=== PATIENT | female | born 1985 | race Caucasian/White ===

== ENCOUNTER 2018-11-29 22:41 | Emergency (ER) | payer MEDICAID, OTHER ==
[2018-11-29] MEDS ORDERED: Iopamidol 755 Mg/ML 100 ML Bottle IV ONE (23:48)
--- NOTE | 2018-11-30 00:03 | EDM.PDOC ---
ED HPI GENERAL MEDICAL PROBLEM - General Stated Complaint: SOB CHEST PAIN,BRUISE LT HIP Time Seen by Provider: 11/29/18 23:00 Source of Information: Reports: Patient History Limitations: Reports: No Limitations - History of Present Illness INITIAL COMMENTS - FREE TEXT/NARRATIVE: patient presents with concern for feeling short of breath with any exertion for the past day. Also has noticed some pain in her left collarbone area and left shoulder blade over the same timeframe. Today noticed a bruise on her left side , very dark, painful, and quite certain she did not get hit there. Has never had anything like this happen before. Nothing seems to make symptoms better or worse. Has noticed fatiguing more easily. Maybe very slight dry cough. No urinary or GI symptoms. immunosupressed been on/off prednisone for some kind of skin condition they have not been able to treat any other way. History of RA for which she is on methotraxate and xeljanz. Has been on 2 drug combination about 2 weeks, prior to that was just on xeljanz. Sexually active with only, LMP 2 days ago. has had vasectomy. Left Chest Pain Score (Numeric/FACES): 4 - Related Data Allergies Allergy/AdvReac Type Severity Reaction Status Date / Time No Known Allergies Allergy Verified 11/30/18 00:24 Home Meds: Home Meds Doxycycline [Vibramycin] 100 mg PO BID #28 cap 11/30/18 [Rx] Methotrexate Sodium [Methotrexate] 12.5 mg PO Q7D 11/30/18 [History] Tofacitinib Citrate [Xeljanz Xr] 1 tab PO DAILY 11/30/18 [History] metroNIDAZOLE [Metronidazole] 500 mg PO BID 14 Days #28 tablet 11/30/18 [Rx] predniSONE [Prednisone] 0 mg PO ASDIRECTED 11/30/18 [History] Past Medical History Cardiovascular History: Reports: None Respiratory History: Reports: None Gastrointestinal History: Reports: Hemorrhoids : 2 Para: 2 Immunologic History: Reports: Immunosuppression, Other (See Below) Other Immunologic History: RA, on methotrexate and xeljanz Social & Family History - Tobacco Use Smoking Status *Q: Never Smoker - Recreational Drug Use Recreational Drug Use: No - Sexual History Sexual History: Reports: Single Partner (s/p vasectomy) - Living Situation & Occupation Living situation: Reports: Social History Comment: two kids. 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 Denies: Fever, Decreased Appetite, Weight Loss HEENT: Denies: Rhinitis, Sinus Problem, Vertigo Respiratory: Reports: Shortness of Breath. Denies: Pleuritic Chest Pain, Cough Cardiovascular: Reports: Dyspnea on Exertion, Lightheadedness, Palpitations. Denies: Chest Pain Endocrine: Denies: Polydypsia, Polyuria GI/Abdominal: Denies: Abdominal Pain, Constipation, Diarrhea, Nausea, Vomiting : Denies: Dysuria, Flank Pain, Frequency, Urgency Musculoskeletal: Reports: Shoulder Pain (left shoulder blade ) Skin: Reports: Bruising (left side ) Neurological: Denies: Headache, Change in Speech, Gait Disturbance Psychiatric: Reports: No Symptoms Hematologic/Lymphatic: Denies: Easy Bleeding, Easy Bruising Immunologic: Reports: No Symptoms ED EXAM, GENERAL - Physical Exam Exam: See Below Free Text/Narrative:: General: alert, very pleasant no acute distress. Head: atraumatic, no bruising. Pupils equal and reactive, EOM intact. Throat without erythema, mucus membranes moist. Heart: regular, rapid increase in rate when sits up. Lungs: clear throughout, good air movement, no wheezes or crackles. Abdomen: diffusely tender, marked in both right and left lower quadrants, ?rebound, no rigidity, no guarding, not acutely painful just noticable with palpation. Extremities: good peripheral pulses, no edema. Skin: 2 inch bruise on left side just above hip, no other obvious bruises or skin lesions. Neuro: facial muscles symmetric, gait normal, strength equal side to side. Course - Vital Signs Text/Narrative:: initial impression - new dyspnea, diffusely tender in abdomen, bruise on left side, pain in left shoulder blade, tachycardic once sits up. R/o bleeding somewhere internally, no apparent cause though - no recent trauma, no history of cysts or any other intra-abdominal processes. Will get labs, CT abdomen/ pelvis with contrast, saline lock. hemodynamically stable at this time. Alternate - appendicitis or ovarian pathology, less likely liver or gallbladder , lungs otherwise non-focal except for odd pain back of left shoulder blade. No recent risk factor for PE. Last Recorded V/S: Last Vital Signs Temp 36.3 C 11/29/18 22:41 Pulse 79 11/30/18 02:51 Resp 18 11/30/18 02:51 BP 119/68 11/30/18 02:51 Pulse Ox 99 11/30/18 02:51 Orthostatic Blood Pressure [ 115/75 Standing] Orthostatic Blood Pressure [ 133/85 Sitting] Orthostatic Blood Pressure [ 127/77 Supine] - Orders/Labs/Meds Labs: Laboratory Tests 11/29/18 11/29/18 11/29/18 Range/Units 23:48 23:51 23:51 WBC 8.4 (4.5-12.0) X10-3/uL RBC 4.25 (3.23-5.20) x10(6)uL Hgb 13.4 (11.5-15.5) g/dL Hct 39.3 (30.0-51.3) % MCV 92.4 (80-96) fL MCH 31.6 (27.7-33.6) pg MCHC 34.2 (32.2-35.4) g/dL RDW 12.2 (11.5-15.5) % Plt Count 376 H (125-369) X10(3)uL MPV 7.5 (7.4-10.4) fL Neut % (Auto) 69.2 (46-82) % Lymph % (Auto) 23.8 (13-37) % [place] % (Auto) 6.6 (4-12) % Eos % (Auto) 0 L (1.0-5.0) % Baso % (Auto) 0 (0-2) % Neut # (Auto) 5.8 (1.6-8.3) # Lymph # (Auto) 2.0 (0.6-5.0) # [place] # (Auto) 0.6 (0.0-1.3) # Eos # (Auto) 0.0 (0.0-0.8) # Baso # (Auto) 0.0 (0.0-0.2) # PT (8.7-11.1) INR (0.89-1.13) D-Dimer, Quantitative (0.0-0.59) mg/LFEU Sodium 138 (135-145) mmol/L Potassium 3.7 (3.5-5.3) mmol/L Chloride 103 (100-110) mmol/L Carbon Dioxide 27 (21-32) mmol/L BUN 14 (7-18) mg/dL Creatinine 1.0 (0.55-1.02) mg/dL Est Cr Clr Drug Dosing TNP Estimated GFR (MDRD) > 60 (>60) BUN/Creatinine Ratio 14.0 (9-20) Glucose 112 (80-116) mg/dL Calcium 9.7 (8.6-10.2) mg/dL Total Bilirubin 0.5 (0.1-1.3) mg/dL AST 17 (5-25) IU/L ALT 42 H (12-36) U/L Alkaline Phosphatase 53 L (56-112) IU/L Total Protein 7.8 (6.0-8.0) g/dL Albumin 4.2 (3.5-5.2) g/dL Globulin 3.6 g/dL Albumin/Globulin Ratio 1.2 Urine Color Yellow (YELLOW) Urine Appearance Clear (CLEAR) Urine pH 7.0 H (5.0-6.5) Ur Specific [place] 1.020 (1.010-1.025) Urine Protein Negative (NEGATIVE) mg/dL Urine Glucose (UA) Normal (NORMAL) mg/dL Urine Ketones Negative (NEGATIVE) mg/dL Urine Occult Blood Negative (NEGATIVE) Urine Nitrite Negative (NEGATIVE) Urine Bilirubin Negative (NEGATIVE) Urine Urobilinogen Normal (NEGATIVE) mg/dL Ur Leukocyte Esterase Negative (NEGATIVE) Urine HCG, Qual (NEGATIVE) 11/29/18 11/30/18 11/30/18 Range/Units 23:51 01:03 01:04 WBC (4.5-12.0) X10-3/uL RBC (3.23-5.20) x10(6)uL Hgb (11.5-15.5) g/dL Hct (30.0-51.3) % MCV (80-96) fL MCH (27.7-33.6) pg MCHC (32.2-35.4) g/dL RDW (11.5-15.5) % Plt Count (125-369) X10(3)uL MPV (7.4-10.4) fL Neut % (Auto) (46-82) % Lymph % (Auto) (13-37) % [place] % (Auto) (4-12) % Eos % (Auto) (1.0-5.0) % Baso % (Auto) (0-2) % Neut # (Auto) (1.6-8.3) # Lymph # (Auto) (0.6-5.0) # [place] # (Auto) (0.0-1.3) # Eos # (Auto) (0.0-0.8) # Baso # (Auto) (0.0-0.2) # PT 11.8 H (8.7-11.1) INR 1.22 H (0.89-1.13) D-Dimer, Quantitative 0.51 (0.0-0.59) mg/LFEU Sodium (135-145) mmol/L Potassium (3.5-5.3) mmol/L Chloride (100-110) mmol/L Carbon Dioxide (21-32) mmol/L BUN (7-18) mg/dL Creatinine (0.55-1.02) mg/dL Est Cr Clr Drug Dosing Estimated GFR (MDRD) (>60) BUN/Creatinine Ratio (9-20) Glucose (80-116) mg/dL Calcium (8.6-10.2) mg/dL Total Bilirubin (0.1-1.3) mg/dL AST (5-25) IU/L ALT (12-36) U/L Alkaline Phosphatase (56-112) IU/L Total Protein (6.0-8.0) g/dL Albumin (3.5-5.2) g/dL Globulin g/dL Albumin/Globulin Ratio Urine Color (YELLOW) Urine Appearance (CLEAR) Urine pH (5.0-6.5) Ur Specific [place] (1.010-1.025) Urine Protein (NEGATIVE) mg/dL Urine Glucose (UA) (NORMAL) mg/dL Urine Ketones (NEGATIVE) mg/dL Urine Occult Blood (NEGATIVE) Urine Nitrite (NEGATIVE) Urine Bilirubin (NEGATIVE) Urine Urobilinogen (NEGATIVE) mg/dL Ur Leukocyte Esterase (NEGATIVE) Urine HCG, Qual Negative (NEGATIVE) Meds: Medications Discontinued Medications Generic Name Dose Route Start Last Admin Trade Name Freq PRN Reason Stop Dose Admin Ceftriaxone Sodium 2 gm 11/30/18 02:31 11/30/18 02:44 Rocephin IVPUSH 11/30/18 02:32 2 gm ONETIME ONE Administration Ceftriaxone Sodium Confirm 11/30/18 02:42 Rocephin Administered 11/30/18 02:43 Dose 2 gm .ROUTE .STK-MED ONE Iopamidol 85 ml 11/29/18 23:48 11/30/18 00:01 Isovue-370 (76%) IV 11/29/18 23:49 85 ml . DIRECTED ONE Administration - Re-Assessments/Exams Free Text/Narrative Re-Assessment/Exam: 11/30/18 01:08 at bedside. Repeat exam, still some RLQ tenderness, lungs clear. Labs - normal WBC, not anemic, platelets mildly elevated. BMP within normal limits. Slight elevated of INR and ALT only. UA negative. CT abdomen/pelvis-- no acute findings. Normal appendix, bruise on left side which is visible externally. Reviewed history, discussed next steps. Plan for CXR, add on D-dimer, check orthostatics. If elevated D-dimer will start IVF to help flush kidneys in case need second CT scan. Free Text/Narrative Re-Assessment/Exam: 11/30/18 02:01 reviewed rest of labs with patient -- CXR negative for any obvious acute processes, d-dimer negative. Biopsy site appears clean. Still minimally tender RLQ, rebound seems to have resolved, normal bowel sounds. Rest of ribcage is nontender. Will get EKG - remaining relatively simple study that hasn't been completed. discussed doing pelvic exam - PID could potentially present this way green-yellow discharge noted with speculum. Patient with slight right adnexal tenderness, some pain with cervical motion though not jumping off bed. Left adnexa area ok will treat for PID, needs followup with PCP, call night clerk in the Am about stopping immunosuppressants for a few days given 2gm IV Rocephin load and Rx for doxycycline and metronidazole. If not improved in 48-72 hours should be re-evaluated. all questions answered 11/30/18 02:45 Departure - Departure Time of Disposition: 02:10 Disposition: Home, Self-Care 01 Condition: Fair Clinical Impression: Pelvic inflammatory disease, acute Contusion Qualifiers: Encounter type: initial encounter Contusion area: abdominal wall Qualified Code (s): S30.1XXA - Contusion of abdominal wall, initial encounter - Discharge Information *PRESCRIPTION DRUG MONITORING PROGRAM REVIEWED*: Not Applicable *COPY OF PRESCRIPTION DRUG MONITORING REPORT IN PATIENT EUN: Not Applicable Prescriptions: Doxycycline [Vibramycin] 100 mg PO BID #28 cap metroNIDAZOLE [Metronidazole] 500 mg PO BID 14 Days #28 tablet Instructions: Ceftriaxone injection, Pelvic Inflammatory Disease, Pelvic Inflammatory Disease, [id number] Referrals: Asiya Bryant NP [Primary Care Provider] - Forms: ED Department Discharge Additional Instructions: Antibiotics should cause improvement within 48 hours. If you stop your RA meds , you might get a fever for a day or two if worsening symptoms, fever (after 24 hours antibiotics), feeling unwell, more short of breath, chest pain, worsening abdominal pain, sweats, or other concerning symptoms, recommend return for re-evaluation. Recommend call PCP in AM and see if can schedule followup, in 2-3 days would be ideal call night clerk in AM and see if need to hold RA meds start oral antibiotics tomorrow AM - doxycycline and metronidazole CXR did not show infiltrate. Negative d-dimer so not indicated for CT at this time normal abdominal/pelvis CT labs - see printout. EKG normal Pelvic exam suspicious for pelvic inflammatory disease
[2018-11-30] MEDS ORDERED: cefTRIAXone 2 GM Vial IVPUSH ONE (02:31)
[2018-11-30] MEDS ORDERED: cefTRIAXone 2 GM Vial ONE (02:42)
--- NOTE | 2018-11-30 11:33 | CR ---
INDICATION: Shortness of breath. CHEST: PA and lateral views of the chest were obtained 11/30/18 - no comparisons. The heart, mediastinum, and bony thorax were unremarkable. An active infiltrate or effusion was not identified. No gross evidence of hyperaeration was seen. There is some prominence of the AP diameter, however. There also appears to be some minimal bronchial wall cuffing in the lower lung moore - lung bases. This could represent active peribronchial disease and/or fibrosis and should be correlated clinically. IMPRESSION: No definite acute process - there is suggestion of mild bronchial wall cuffing at the lung bases, which could represent active peribronchial disease and should be correlated clinically. No other finding to suggest active disease was suggested. MTDD
== END 2018-11-30 02:50 | disposition home or self-care (01) ==
LOC: FB.ED 22:41
DX: S30.1XXA Contusion of abdominal wall, initial encounter (principal); N73.9 Female pelvic inflammatory disease, unspecified; Z79.899 Other long term (current) drug therapy; X58.XXXA Exposure to other specified factors, initial encounter
CPT/HCPCS: 36415; 71046; 74177; 80053; 81003; 81025; 85025; 85379; 85610; 93005; 96374; 99285; J0696; Q9967